=== PATIENT | male | born 1960 | race Caucasian/White ===

== ENCOUNTER → 2016-11-23 | Outpatient (REF) | payer OTHER ==
[2016-11-23 13:32] LABS: ALBUMIN 4.3 GM/DL (3.2-5.2); ALKALINE PHOSPHATASE 56 U/L (45-117); ALT/SGPT 22 U/L (12-78); ANION GAP 10 MEQ/L (8-16); AST/SGOT 13 U/L (15-37); BILIRUBIN,TOTAL 0.6 MG/DL (0.2-1.0); BLOOD UREA NITROGEN 20 MG/DL (7-18); CALCIUM LEVEL 8.6 MG/DL (8.5-10.1); CARBON DIOXIDE LEVEL 26 MEQ/L (21-32); CHLORIDE LEVEL 101 MEQ/L (98-107); CHOLESTEROL LEVEL 233 MG/DL (<200); GLOMERULAR FILTRATION RATE > 60.0 (>56); GLUCOSE, FASTING 112 MG/DL (70-105); POTASSIUM SERUM 4.7 MEQ/L (3.5-5.1); SODIUM LEVEL 137 MEQ/L (136-145); TOTAL PROTEIN 7.6 GM/DL (6.4-8.2); TRIGLYCERIDES LEVEL 237 MG/DL (<150); URIC ACID 6.8 MG/DL (3.5-7.2)
== END ==
LOC: M SFHCADAM 08:08
PROVIDERS: ATTEND Family Medicine
DX: I10 Essential (primary) hypertension (principal); R73.03 Prediabetes; E78.2 Mixed hyperlipidemia; Z12.5 Encounter for screening for malignant neoplasm of prostate; M10.9 Gout, unspecified

== ENCOUNTER → 2017-06-02 | Outpatient (REF) | payer OTHER ==
[2017-06-02 14:24] LABS: ALBUMIN 4.2 GM/DL (3.2-5.2); ALBUMIN/GLOBULIN RATIO 1.14 (1.00-1.93); ALKALINE PHOSPHATASE 87 U/L (45-117); ALT/SGPT 36 U/L (12-78); ANION GAP 8 MEQ/L (8-16); AST/SGOT 23 U/L (7-37); BILIRUBIN,TOTAL 0.5 MG/DL (0.2-1.0); BLOOD UREA NITROGEN 13 MG/DL (7-18); CALCIUM LEVEL 9.3 MG/DL (8.5-10.1); CARBON DIOXIDE LEVEL 29 MEQ/L (21-32); CHLORIDE LEVEL 101 MEQ/L (98-107); CHOLESTEROL LEVEL 186 MG/DL (<200); CREATININE FOR GFR 0.86 MG/DL (0.70-1.30); GLOMERULAR FILTRATION RATE > 60.0 (>56); GLUCOSE, FASTING 115 MG/DL (70-105); SODIUM LEVEL 138 MEQ/L (136-145); TOTAL PROTEIN 7.9 GM/DL (6.4-8.2); TRIGLYCERIDES LEVEL 224 MG/DL (<150)
== END ==
LOC: M SFHCADAM 13:33
PROVIDERS: ATTEND Family Medicine
DX: E78.2 Mixed hyperlipidemia (principal)

== ENCOUNTER → 2018-06-06 | Outpatient (REF) | payer OTHER ==
[2018-06-06 12:44] LABS: ALBUMIN 4.4 GM/DL (3.2-5.2); ALBUMIN/GLOBULIN RATIO 1.42 (1.00-1.93); ALKALINE PHOSPHATASE 74 U/L (45-117); ALT/SGPT 31 U/L (12-78); ANION GAP 6 MEQ/L (8-16); AST/SGOT 19 U/L (7-37); BILIRUBIN,TOTAL 0.6 MG/DL (0.2-1.0); BLOOD UREA NITROGEN 13 MG/DL (7-18); CALCIUM LEVEL 8.9 MG/DL (8.5-10.1); CARBON DIOXIDE LEVEL 28 MEQ/L (21-32); CHLORIDE LEVEL 102 MEQ/L (98-107); CHOLESTEROL LEVEL 159 MG/DL (<200); CHOLESTEROL RISK RATIO 3.975 (<5); CREATININE FOR GFR 0.93 MG/DL (0.70-1.30); GLOMERULAR FILTRATION RATE > 60.0 (>56); GLUCOSE, FASTING 111 MG/DL (70-100); HDL CHOLESTEROL 40 MG/DL (>40); LDL CHOLESTEROL 75 MG/DL (<100); NON-HDL-C 119 MG/DL; POTASSIUM SERUM 4.7 MEQ/L (3.5-5.1); PSA SCREENING 0.4 NG/ML (< 4.0); SODIUM LEVEL 136 MEQ/L (136-145); TOTAL PROTEIN 7.5 GM/DL (6.4-8.2); TRIGLYCERIDES LEVEL 218 MG/DL (<150); URIC ACID 7.8 MG/DL (3.5-7.2)
== END ==
LOC: M SFHCADAM 08:33
DX: I10 Essential (primary) hypertension (principal); E78.2 Mixed hyperlipidemia; Z12.5 Encounter for screening for malignant neoplasm of prostate; M10.9 Gout, unspecified

== ENCOUNTER → 2018-09-07 | Outpatient (REF) | payer OTHER ==
[2018-09-07 19:50] LABS: BLOOD UREA NITROGEN 18 MG/DL (7-18); CALCIUM LEVEL 9.2 MG/DL (8.5-10.1); CARBON DIOXIDE LEVEL 27 MEQ/L (21-32); CHLORIDE LEVEL 100 MEQ/L (98-107); CREATININE FOR GFR 0.99 MG/DL (0.70-1.30); GLOMERULAR FILTRATION RATE > 60.0 (>56); GLUCOSE, FASTING 97 MG/DL (70-100); POTASSIUM SERUM 4.5 MEQ/L (3.5-5.1); SODIUM LEVEL 136 MEQ/L (136-145); URIC ACID 6.9 MG/DL (3.5-7.2)
== END ==
LOC: M SFHCADAM 14:49
PROVIDERS: ATTEND Family Medicine
DX: M10.9 Gout, unspecified (principal)

== ENCOUNTER → 2019-08-15 | Outpatient (REF) | payer OTHER ==
[2019-08-15 13:32] LABS: ALBUMIN 4.5 GM/DL (3.2-5.2); ALT/SGPT 32 U/L (12-78); BILIRUBIN,TOTAL 0.6 MG/DL (0.2-1.0); BLOOD UREA NITROGEN 17 MG/DL (7-18); CARBON DIOXIDE LEVEL 30 MEQ/L (21-32); CHLORIDE LEVEL 99 MEQ/L (98-107); CHOLESTEROL LEVEL 197 MG/DL (<200); CHOLESTEROL RISK RATIO 4.804 (<5); CREATININE FOR GFR 0.92 MG/DL (0.70-1.30); GLOMERULAR FILTRATION RATE > 60.0 (>56); GLUCOSE, FASTING 117 MG/DL (70-100); HDL CHOLESTEROL 41 MG/DL (>40); LDL CHOLESTEROL 93 MG/DL (<100); NON-HDL-C 156 MG/DL; POTASSIUM SERUM 4.8 MEQ/L (3.5-5.1); SODIUM LEVEL 137 MEQ/L (136-145); TOTAL PROTEIN 8.1 GM/DL (6.4-8.2); TRIGLYCERIDES LEVEL 313 MG/DL (<150); URIC ACID 7.5 MG/DL (3.5-7.2)
[2019-08-15 14:08] LABS: HEMOGLOBIN A1c 6.3 %
== END ==
LOC: M SFHCADAM 08:11
PROVIDERS: ATTEND Family Medicine
DX: Z12.5 Encounter for screening for malignant neoplasm of prostate (principal); E78.2 Mixed hyperlipidemia; R73.03 Prediabetes; M10.9 Gout, unspecified
CPT/HCPCS: 80053; 80061; 83036; 84550; G0103

== ENCOUNTER → 2020-07-24 | Outpatient (REF) | payer OTHER ==
[~2020-07-24] MED LIST: ALLO100T; AMLO1TAB24; ASPI81TA26 PO; ATOR1TAB21; AZEL1SPR3; CITA20TA7; LISI40TA; PRIL20TA2 PO
[2020-07-24 14:16] LABS: ALBUMIN 4.6 GM/DL (3.2-5.2); ALT/SGPT 37 U/L (12-78); BILIRUBIN,TOTAL 0.8 MG/DL (0.2-1.0); BLOOD UREA NITROGEN 15 MG/DL (7-18); CALCIUM LEVEL 9.3 MG/DL (8.8-10.2); CARBON DIOXIDE LEVEL 28 MEQ/L (21-32); CHLORIDE LEVEL 101 MEQ/L (98-107); CHOLESTEROL LEVEL 195 MG/DL (<200); CHOLESTEROL RISK RATIO 4.239 (<5); CREATININE FOR GFR 0.98 MG/DL (0.70-1.30); GLOMERULAR FILTRATION RATE > 60.0 (>49); GLUCOSE, FASTING 134 MG/DL (70-100); HDL CHOLESTEROL 46 MG/DL (>40); LDL CHOLESTEROL 93 MG/DL (<100); NON-HDL-C 149 MG/DL; POTASSIUM SERUM 4.9 MEQ/L (3.5-5.1); SODIUM LEVEL 135 MEQ/L (136-145); TRIGLYCERIDES LEVEL 282 MG/DL (<150)
== END ==
LOC: M LABDRWAD 12:47
PROVIDERS: ATTEND Family Medicine
DX: Z12.5 Encounter for screening for malignant neoplasm of prostate (principal); E11.9 Type 2 diabetes mellitus without complications; E78.5 Hyperlipidemia, unspecified
CPT/HCPCS: 36415; 80053; 80061; 83036; G0103

== ENCOUNTER → 2020-07-24 | Outpatient (CLI) | payer OTHER | LOC: M LABSMTC 11:21 | PROVIDERS: ATTEND Anesthesiology | DX: Z01.812 Encounter for preprocedural laboratory examination (principal); Z20.822 Contact with and (suspected) exposure to COVID-19 ==

== ENCOUNTER 2020-07-29 08:42 | Day surgery (SDC) | payer BC, OTHER ==
[~2020-07-29] VITALS: Ht 180.3 cm; Wt 91.2 kg
[~2020-07-29 08:42] MED LIST changes: +LIDOCAINE 2% 100MG/5ML SDV (FOR ANES.) As Ordered ONE; +NS 1,000 ML IV ONE; +propofoL 200 MG/20 ML VIAL As Ordered ONE
--- NOTE | 2020-07-29 10:42 | ROOR ---
Patient Name: Ricardo Clay Procedure Date: 07/29/2020 10:07 AM Date of : 1960 Age: 59 Room: [facility] Gender: Male Note Status: Finalized Procedure: Total Colonoscopy to Cecum Indications: Screening for colorectal malignant neoplasm Providers: Curt Smith MD Referring MD: Tez Shaw MD Requesting Provider: Medicines: Monitored Anesthesia Care Complications: No immediate complications. Procedure: Pre-Anesthesia Assessment: - The heart rate, respiratory rate, oxygen saturations, blood pressure, adequacy of pulmonary ventilation, and response to care were monitored throughout the procedure. The Colonoscope was introduced through the anus and advanced to the cecum, identified by appendiceal orifice and ileocecal valve. The colonoscopy was performed without difficulty. The patient tolerated the procedure well. The quality of the bowel preparation was good. Findings: The perianal and digital rectal examinations were normal. Non-bleeding internal hemorrhoids were found during retroflexion. The hemorrhoids were small and Grade I (internal hemorrhoids that do not prolapse). Scattered small-mouthed diverticula were found in the recto-sigmoid colon, sigmoid colon and descending colon. The exam was otherwise without abnormality on direct and retroflexion views. The exam was otherwise without abnormality. Impression: - Non-bleeding internal hemorrhoids. - Diverticulosis in the recto-sigmoid colon, in the sigmoid colon and in the descending colon. - The examination was otherwise normal on direct and retroflexion views. - The examination was otherwise normal. - No specimens collected. - The exam was otherwise normal to the cecum. Recommendation: - Patient has a contact number available for emergencies. The signs and symptoms of potential delayed complications were discussed with the patient. Return to normal activities tomorrow. Written discharge instructions were provided to the patient. - Discharge patient to home. - Continue present medications. - Repeat colonoscopy in 10 years for screening purposes. - Return to referring physician. - The findings and recommendations were discussed with the patient. Procedure Code(s): --- Professional --- 11612, Colonoscopy, flexible; diagnostic, including collection of specimen(s) by brushing or washing, when performed (separate procedure) Diagnosis Code(s): --- Professional --- Z12.11, Encounter for screening for malignant neoplasm of colon K64.0, First degree hemorrhoids K57.30, Diverticulosis of large intestine without perforation or abscess without bleeding CPT copyright 2019 [employer]. All rights reserved. The codes documented in this report are preliminary and upon cigar packer and picker review may be revised to meet current compliance requirements. Curt mSith MD Curt Smith MD 07/29/2020 10:42:27 AM Electronically signed by Curt Smith MD Number of Addenda: 0 Note Initiated On: 07/29/2020 10:07 AM Estimated Blood Loss: Estimated blood loss: none.
[2020-07-29 10:55] VITALS: BP 129/77
== END 2020-07-29 11:07 | disposition home or self-care (01) ==
LOC: M OPP 08:42
PROVIDERS: ATTEND Internal Medicine Gastroenterology
DX: Z12.11 Encounter for screening for malignant neoplasm of colon (principal); K64.0 First degree hemorrhoids; K57.30 Diverticulosis of large intestine without perforation or abscess without bleeding; I10 Essential (primary) hypertension; E78.5 Hyperlipidemia, unspecified; K58.9 Irritable bowel syndrome, unspecified; R12 Heartburn; F41.9 Anxiety disorder, unspecified; Z87.891 Personal history of nicotine dependence; Z79.82 Long term (current) use of aspirin; Z79.899 Other long term (current) drug therapy

== ENCOUNTER → 2020-08-05 | Outpatient (CLI) | payer BC, OTHER ==
[~2020-08-05] MED LIST changes: -LIDOCAINE 2% 100MG/5ML SDV (FOR ANES.) As Ordered ONE; -LISI40TA; +LISI40TA4; -NS 1,000 ML IV ONE; -propofoL 200 MG/20 ML VIAL As Ordered ONE
--- NOTE | 2020-08-06 09:29 | REP ---
INDICATION: CERVICAL ARTHRITIS. COMPARISON: None. TECHNIQUE: AP, lateral, flexion/extension, swimmer's, open mouth and bilateral oblique views of the cervical spine FINDINGS: Age-related osteopenia is appreciated. Focal mild/moderate degenerative disc osteophyte complex at C5-6 and C6-7 includes marginal spurring and minimal disc space narrowing. Flexion view suggests approximately 1.5 mm of anterolisthesis at the C3-4 level. No evidence for acute fracture/compression injury. Open mouth view demonstrates normal C1-C2 articulation and odontoid process. Oblique views demonstrate facet arthropathy at C3-4 and C4-5. IMPRESSION: Early moderate degenerative changes. <Electronically signed by Franco Berman > 08/06/20 0927
== END ==
LOC: M ADAMS 10:08
PROVIDERS: ATTEND Family Medicine
DX: M25.78 Osteophyte, vertebrae (principal); M47.812 Spondylosis without myelopathy or radiculopathy, cervical region

== ENCOUNTER → 2020-12-25 | Outpatient (REF) | payer OTHER ==
[2020-12-25 14:51] LABS: BLOOD UREA NITROGEN 13 MG/DL (7-18); CALCIUM LEVEL 9.1 MG/DL (8.8-10.2); CARBON DIOXIDE LEVEL 29 MEQ/L (21-32); CHLORIDE LEVEL 104 MEQ/L (98-107); CREATININE FOR GFR 0.82 MG/DL (0.70-1.30); GLOMERULAR FILTRATION RATE > 60.0 (>49); GLUCOSE, FASTING 117 MG/DL (70-100); POTASSIUM SERUM 4.9 MEQ/L (3.5-5.1); SODIUM LEVEL 138 MEQ/L (136-145)
[2020-12-25 16:05] LABS: HEMOGLOBIN A1c 6.1 %
== END ==
LOC: M SFHCADAM 08:09
PROVIDERS: ATTEND Family Medicine
DX: R73.03 Prediabetes (principal)

== ENCOUNTER → 2020-12-26 | Outpatient (CLI) | payer BC, OTHER ==
--- NOTE | 2020-12-26 16:23 | REPVR ---
PROCEDURE INFORMATION: Exam: MR Cervical Spine Without Contrast Exam date and time: 12/26/2020 2:57 PM Age: 60 years old Clinical indication: Pain; Cervicalgia TECHNIQUE: Imaging protocol: Multiplanar magnetic resonance images of the cervical spine without contrast. COMPARISON: DX SPINE CERVICAL COMPL 08/05/2020 9:53 AM FINDINGS: Mild straightening of the normal cervical lordosis. Alignment anatomic. Bone marrow signal normal. No MR evidence of acute fracture, dislocation or subluxation. Vertebral body heights maintained. No abnormal signal within the visualized spinal cord. No fluid collection or soft tissue mass. Mild multilevel degenerative changes, characterized by disc space narrowing, osteophytosis and uncovertebral and facet joint hypertrophy, most pronounced at C6-C7. Disc ridge complexes at C3-C4, C4-C5, C5-C6 and C6-C7, all of which mildly efface the ventral thecal sac. Mild indentation of the ventral spinal cord at C4-C5, C5-C6 and C6-C7 without significant cord compression. Superimposed right parasagittal/foraminal disc protrusion at C6-C7 with resultant severe neural foraminal stenosis. Mild bilateral neural foraminal stenosis at C3-C4 and C4-C5. [id number] neural foraminal narrowing at C5-C6 on the right. IMPRESSION: Multilevel spondylosis and degenerative disc disease, most pronounced at C6-C7, as described above. Electronically signed by: Nick Calle On 12/26/2020 16:23:19 PM
== END ==
LOC: M RAD 13:45
PROVIDERS: ATTEND Orthopaedic Surgery
DX: M50.323 Other cervical disc degeneration at C6-C7 level (principal); M47.812 Spondylosis without myelopathy or radiculopathy, cervical region

== ENCOUNTER → 2021-07-19 | Outpatient (REF) | LOC: M LABSMTC 09:26 | PROVIDERS: ATTEND Pediatrics | DX: Z11.52 Encounter for screening for COVID-19 (principal); Z20.822 Contact with and (suspected) exposure to COVID-19 ==

== ENCOUNTER → 2021-12-24 | Outpatient (REF) | payer OTHER ==
[2021-12-24 12:41] LABS: HEMOGLOBIN 15.3 g/dl (13.5-17.5); MEAN CORPUSCULAR HEMOGLOBIN 31.9 pg (27.0-33.0); MEAN CORPUSCULAR HGB CONC 33.3 g/dl (32.0-36.5); MEAN CORPUSCULAR VOLUME 95.8 fl (80.0-96.0); PLATELET COUNT, AUTOMATED 278 10^3/uL (150-450); WHITE BLOOD COUNT 6.5 10^3/uL (4.0-10.0)
[2021-12-24 15:15] LABS: ALBUMIN 4.2 GM/DL (3.2-5.2); ALT/SGPT 36 U/L (12-78); BILIRUBIN,TOTAL 0.7 MG/DL (0.2-1.0); BLOOD UREA NITROGEN 15 MG/DL (7-18); CALCIUM LEVEL 8.6 MG/DL (8.8-10.2); CARBON DIOXIDE LEVEL 26 MEQ/L (21-32); CHLORIDE LEVEL 104 MEQ/L (98-107); CHOLESTEROL LEVEL 163 MG/DL (<200); CREATININE FOR GFR 1.24 MG/DL (0.70-1.30); FREE T4 0.82 NG/DL (0.76-1.46); GLOMERULAR FILTRATION RATE > 60.0 (>49); GLUCOSE, FASTING 122 MG/DL (70-100); HDL CHOLESTEROL 43 MG/DL (>40); LDL CHOLESTEROL 73 MG/DL (<100); NON-HDL-C 120 MG/DL; POTASSIUM SERUM 4.6 MEQ/L (3.5-5.1); SODIUM LEVEL 138 MEQ/L (136-145); TOTAL PROTEIN 8.1 GM/DL (6.4-8.2); TRIGLYCERIDES LEVEL 233 MG/DL (<150); URIC ACID 6.9 MG/DL (3.5-7.2)
[2021-12-24 16:57] LABS: HEMOGLOBIN A1c 5.8 %
== END ==
LOC: M SFHCADAM 08:58
PROVIDERS: ATTEND Family Medicine
DX: E78.2 Mixed hyperlipidemia (principal); I10 Essential (primary) hypertension; F32.9 Major depressive disorder, single episode, unspecified; R73.03 Prediabetes; M10.9 Gout, unspecified; Z12.5 Encounter for screening for malignant neoplasm of prostate
CPT/HCPCS: 80053; 80061; 83036; 84439; 84443; 84550; 85027; G0103

== ENCOUNTER → 2022-07-07 | Outpatient (CLI) | payer OTHER | LOC: M ADAMS 09:13 | PROVIDERS: ATTEND Family Medicine | DX: M19.012 Primary osteoarthritis, left shoulder (principal); M77.8 Other enthesopathies, not elsewhere classified ==

== ENCOUNTER → 2022-12-09 | Outpatient (REF) | payer OTHER ==
[2022-12-09 13:01] LABS: HEMATOCRIT 46.2 % (42.0-52.0); HEMOGLOBIN 15.2 g/dl (13.5-17.5); MEAN CORPUSCULAR HEMOGLOBIN 31.6 pg (27.0-33.0); MEAN CORPUSCULAR HGB CONC 32.9 g/dl (32.0-36.5); PLATELET COUNT, AUTOMATED 277 10^3/uL (150-450); RED BLOOD COUNT 4.81 10^6/uL (4.30-6.10); WHITE BLOOD COUNT 6.1 10^3/uL (4.0-10.0)
[2022-12-09 13:05] LABS: ALKALINE PHOSPHATASE 77 U/L (46-116); ALT/SGPT 17 U/L (7.0-40); AST/SGOT 17 U/L (<34); BILIRUBIN,TOTAL 0.6 MG/DL (0.3-1.2); BLOOD UREA NITROGEN 17 MG/DL (9-23); CALCIUM LEVEL 9.4 MG/DL (8.3-10.6); CARBON DIOXIDE LEVEL 27 MMOL/L (20-31); CHLORIDE LEVEL 105 MMOL/L (98-107); CHOLESTEROL LEVEL 151 MG/DL (<200); CHOLESTEROL RISK RATIO 3.47 (<5); CREATININE FOR GFR 0.87 MG/DL (0.70-1.30); GLOMERULAR FILTRATION RATE > 60.0 (>49); GLUCOSE, FASTING 130 MG/DL (74-106); HDL CHOLESTEROL 43.4 MG/DL (>40); LDL CHOLESTEROL 72.4 MG/DL (<100); NON-HDL-C 107.6 MG/DL; POTASSIUM SERUM 5.3 MMOL/L (3.5-5.1); SODIUM LEVEL 139 MMOL/L (136-145); TOTAL PROTEIN 7.3 G/DL (5.7-8.2); TRIGLYCERIDES LEVEL 176 MG/DL (<150)
[2022-12-09 13:06] LABS: URIC ACID 7.1 MG/DL (3.7-9.2)
[2022-12-09 13:28] LABS: HEMOGLOBIN A1c 5.8 % (4.0-6.0)
== END ==
LOC: M SFHCADAM 07:49
PROVIDERS: ATTEND Family Medicine
DX: I10 Essential (primary) hypertension (principal); E78.2 Mixed hyperlipidemia; F32.9 Major depressive disorder, single episode, unspecified; R73.03 Prediabetes; M10.9 Gout, unspecified; Z12.5 Encounter for screening for malignant neoplasm of prostate
CPT/HCPCS: 80053; 80061; 83036; 84550; 85027; G0103

== ENCOUNTER → 2023-06-16 | Outpatient (REF) | payer OTHER ==
[2023-06-16 14:23] LABS: URIC ACID 6.9 MG/DL (3.7-9.2)
[2023-06-16 14:26] LABS: ALBUMIN 4.3 G/DL (3.2-5.2); ALKALINE PHOSPHATASE 81 U/L (46-116); ALT/SGPT 21 U/L (7.0-40); AST/SGOT 18 U/L (<34); BILIRUBIN,TOTAL 0.9 MG/DL (0.3-1.2); BLOOD UREA NITROGEN 21 MG/DL (9-23); CALCIUM LEVEL 9.5 MG/DL (8.3-10.6); CARBON DIOXIDE LEVEL 28 MMOL/L (20-31); CHLORIDE LEVEL 100 MMOL/L (98-107); GLOMERULAR FILTRATION RATE > 60.0 (>49); GLUCOSE, FASTING 134 MG/DL (74-106); POTASSIUM SERUM 5.2 MMOL/L (3.5-5.1); SODIUM LEVEL 136 MMOL/L (136-145); TOTAL PROTEIN 7.7 G/DL (5.7-8.2)
[2023-06-16 14:41] LABS: HEMOGLOBIN A1c 5.6 % (4.0-6.0)
[2023-06-16 14:50] LABS: CREATININE, URINE 165.6 MG/DL; MAU/CREAT RATIO 4.8 MCG/MG (0.0-30.0)
== END ==
LOC: M SFHCADAM 08:27
PROVIDERS: ATTEND Family Medicine
DX: I10 Essential (primary) hypertension (principal); E11.9 Type 2 diabetes mellitus without complications; M10.9 Gout, unspecified

== ENCOUNTER → 2024-01-04 | Outpatient (REF) | payer BC ==
[2024-01-04 14:59] LABS: PSA SCREENING 0.36 NG/ML (< 4.00)
[2024-01-04 15:01] LABS: BLOOD UREA NITROGEN 11 MG/DL (9-23); CALCIUM LEVEL 9.2 MG/DL (8.3-10.6); CARBON DIOXIDE LEVEL 28 MMOL/L (20-31); CHLORIDE LEVEL 106 MMOL/L (98-107); CREATININE FOR GFR 0.73 MG/DL (0.70-1.30); GLOMERULAR FILTRATION RATE > 60.0 (>49); GLUCOSE, FASTING 167 MG/DL (74-106); SODIUM LEVEL 141 MMOL/L (136-145)
[2024-01-04 15:21] LABS: HEMOGLOBIN A1c 5.7 % (4.0-6.0)
== END ==
LOC: M SFHCADAM 09:14
PROVIDERS: ATTEND Family Medicine
DX: E11.9 Type 2 diabetes mellitus without complications (principal); Z12.5 Encounter for screening for malignant neoplasm of prostate
CPT/HCPCS: 80048; 83036; G0103

== ENCOUNTER → 2024-03-07 | Outpatient (CLI) | payer BC | LOC: M SOG 07:53 | PROVIDERS: ATTEND Physician Assistant | DX: M25.522 Pain in left elbow (principal) ==

== ENCOUNTER → 2024-06-18 | Outpatient (REF) | payer BC ==
[2024-06-18 13:46] LABS: HEMOGLOBIN 14.7 g/dl (13.5-17.5); MEAN CORPUSCULAR HEMOGLOBIN 31.3 pg (27.0-33.0); MEAN CORPUSCULAR HGB CONC 32.7 g/dl (32.0-36.5); MEAN CORPUSCULAR VOLUME 95.7 fl (80.0-96.0); PLATELET COUNT, AUTOMATED 286 10^3/uL (150-450); WHITE BLOOD COUNT 6.7 10^3/uL (4.0-10.0)
[2024-06-18 14:11] LABS: URIC ACID 6.3 MG/DL (3.7-9.2)
[2024-06-18 14:14] LABS: ALKALINE PHOSPHATASE 136 U/L (40-129); ALT/SGPT 65 U/L (7.0-40); AST/SGOT 32 U/L (<34); BILIRUBIN,TOTAL 0.8 MG/DL (0.3-1.2); BLOOD UREA NITROGEN 14 MG/DL (9-23); CARBON DIOXIDE LEVEL 29 MMOL/L (20-31); CHLORIDE LEVEL 104 MMOL/L (98-107); CHOLESTEROL LEVEL 160 MG/DL (<200); CREATININE FOR GFR 0.81 MG/DL (0.70-1.30); CREATININE, URINE 98.4 MG/DL; GLOMERULAR FILTRATION RATE > 60.0 (>49); GLUCOSE, FASTING 133 MG/DL (74-106); HDL CHOLESTEROL 48.4 MG/DL (>40); LDL CHOLESTEROL 78.6 MG/DL (<100); MAU/CREAT RATIO 7.1 MCG/MG (0.0-30.0); NON-HDL-C 111.6 MG/DL; POTASSIUM SERUM 4.8 MMOL/L (3.5-5.1); SODIUM LEVEL 140 MMOL/L (136-145); TOTAL PROTEIN 7.7 G/DL (5.7-8.2); TRIGLYCERIDES LEVEL 165 MG/DL (<150)
[2024-06-18 15:20] LABS: HEMOGLOBIN A1c 5.8 % (4.0-6.0)
== END ==
LOC: M SFHCADAM 10:04
PROVIDERS: ATTEND Family Medicine
DX: E78.2 Mixed hyperlipidemia (principal); E11.9 Type 2 diabetes mellitus without complications; M10.9 Gout, unspecified

== ENCOUNTER → 2025-01-20 | Outpatient (CLI) | payer MEDICARE, BC ==
[~2025-01-20] MED LIST changes: +LISI40TA10; -LISI40TA4
== END ==
LOC: M RAD 08:31
PROVIDERS: ATTEND Family Medicine
DX: Z13.6 Encounter for screening for cardiovascular disorders (principal)

== ENCOUNTER → 2025-01-30 | Outpatient (REF) | payer MEDICARE, BC ==
[2025-01-30 18:33] LABS: C REACTIVE PROTEIN QUANTITATIV 1.00 MG/DL (<1.0)
[2025-01-30 18:34] LABS: ALT/SGPT 18 U/L (7.0-40); AST/SGOT 21 U/L (<34); CALCIUM LEVEL 8.9 MG/DL (8.3-10.6); CARBON DIOXIDE LEVEL 29 MMOL/L (20-31); CHLORIDE LEVEL 102 MMOL/L (98-107); CHOLESTEROL LEVEL 150 MG/DL (<200); CHOLESTEROL RISK RATIO 2.87 (<5); CREATININE FOR GFR 0.91 MG/DL (0.70-1.30); GLOMERULAR FILTRATION RATE > 90.0 (>49); LDL CHOLESTEROL 73.3 MG/DL (<100); NON-HDL-C 97.9 MG/DL; POTASSIUM SERUM 4.8 MMOL/L (3.5-5.1); SODIUM LEVEL 141 MMOL/L (136-145); TRIGLYCERIDES LEVEL 123 MG/DL (<150)
[2025-01-30 18:40] LABS: RHEUMATOID FACTOR QUANT < 3.5 IU/ML (<14)
== END ==
LOC: M SFHCADAM 13:36
PROVIDERS: ATTEND Family Medicine
DX: E11.9 Type 2 diabetes mellitus without complications (principal); M10.9 Gout, unspecified; E78.2 Mixed hyperlipidemia; M25.50 Pain in unspecified joint

== ENCOUNTER → 2025-02-05 | Outpatient (CLI) | payer MEDICARE, BC | LOC: M RAD 06:55 | PROVIDERS: ATTEND Family Medicine | DX: F17.210 Nicotine dependence, cigarettes, uncomplicated (principal) ==

== ENCOUNTER → 2025-02-27 | Outpatient (CLI) | payer MEDICARE, BC ==
[2025-02-27 14:11] LABS: PLATELET COUNT, AUTOMATED 319 10^3/uL (150-450)
[2025-02-27 14:22] LABS: ERYTHROCYTE SEDIMENTATION RATE 40 mm/hr (0-20)
[2025-03-03 16:22] LABS: LYME TOTAL ANTIBODY CIA <= 0.90 Index (<=0.90)
[2025-03-06 12:58] LABS: HLA-B27 Negative (Negative)
== END ==
LOC: M PLALAB 11:19
PROVIDERS: ATTEND Family Medicine
DX: M25.50 Pain in unspecified joint (principal)